=== PATIENT | female | born 1975 | race Caucasian/White ===

== ENCOUNTER → 2016-10-03 | Outpatient (CLI) | payer OTHER | LOC: WI 08:18 | PROVIDERS: ATTEND Nurse Practitioner Primary Care | DX: Z12.31 Encounter for screening mammogram for malignant neoplasm of breast (principal); R92.0 Mammographic microcalcification found on diagnostic imaging of breast | CPT/HCPCS: 77063; G0202; 77067 ==

== ENCOUNTER → 2016-10-16 | Outpatient (CLI) | payer OTHER | LOC: WI 07:50 | PROVIDERS: ATTEND Nurse Practitioner Primary Care | DX: R92.2 Inconclusive mammogram (principal) | CPT/HCPCS: G0204-52 ==

== ENCOUNTER → 2016-10-30 | Day surgery (SDC) | payer OTHER ==
[~2016-10-30] MED LIST: LIDOCAINE 1%/EPINEPHRINE INJ 20 ML VIAL ONE
== END ==
LOC: WI 08:14
PROVIDERS: ATTEND Nurse Practitioner Primary Care
PROC: 0HBU3ZX Excision of Left Breast, Percutaneous Approach, Diagnostic (ICD-10-PCS; principal; 2016-10-30)
DX: N60.32 Fibrosclerosis of left breast (principal); R92.0 Mammographic microcalcification found on diagnostic imaging of breast
CPT/HCPCS: 88305 ×2; 88342; 19081; 76642; J3490

== ENCOUNTER → 2017-01-02 | Day surgery (SDC) | payer OTHER ==
[~2017-01-02] MED LIST changes: -LIDOCAINE 1%/EPINEPHRINE INJ 20 ML VIAL ONE; +LIDOCAINE 2% INJ (20 MG/ML) 20 ML MDV ONE
--- NOTE | 2017-01-04 17:20 | WOMENS IMAGING REPORT ---
EXAM DESCRIPTION: U/S BREAST BX; LEFT DIG DX MAMMO NO CHG COMPLETED DATE/TIME: 01/02/2017 2:10 pm; 01/02/2017 1:52 pm REASON FOR STUDY: R92.0, CALCS; S/P US LEFT BRST BX FOR CLIP PLACEMENT R92.0 MAMMOGRAPHIC MICROCALC IFICATION FOUND ON DX IMAGING OF N60.02 SOLITARY CYST OF LEFT BREAST COMPARISON: Multiple left breast mammograms and ultrasound dating back to 10/03/2016 Stereotactic left breast biopsy 10/30/2016 TECHNIQUE: The procedure was discussed with the patient and the patient agreed to proceed. The patient was scanned and the area of interest in the deep 1 o'clock position 10 to 11 cm from the nipple of the last breast was localized. This correlates with the area of concern on prior imaging s tudies. This area was targeted for ultrasound-guided core biopsy. After sterile skin prep and 3.5 mL cc local lidocaine 1% for skin and deep tissue anesthesia, a 14 ga uge coaxial core biopsy needle was used to obtain several cores of tissue from the lesion. The lesio n was completely gone after core biopsy suggesting rupture of a cyst. Under ultrasound guidance, a r ibbon clip was placed in the areas sampled. There were no immediate post-procedure complications. MAMMOGRAM: Post-procedure two view mammogram was acquired in the digital mammogram suite. The clip wa s in the expected location. No significant hematoma. Pathology yields a diagnosis of benign mammary tissue with interlobular fibrosis and fibrocystic rojas ges. No atypia or malignancy identified. Pathology is concordant. LIMITATIONS: None. FINDINGS: Ultrasound guided breast biopsy as described above. POST PROCEDURE MAMMOGRAMS FOR MARKER PLACEMENT: Yes IMPRESSION: ULTRASOUND-GUIDED CORE BIOPSY OF THE LEFT BREAST YIELDS A BENIGN DIAGNOSIS BI-RADS 2 Benign findings. COMMENT: COMMUNICATION: PATIENT WAS NOTIFIED OF THE RESULTS, 1030 HOURS, 01/04/2017 Patient medication list reviewed: Yes- Quality ID# [id number]:Eligible professional attests to documenting i n the medical record they obtained, updated, or reviewed the patient's current medications. TECHNICAL DOCUMENTATION: JOB ID: [id number] [employer]- All Rights Reserved
== END ==
LOC: WI 13:00
PROVIDERS: ATTEND Surgery
PROC: 0HBU3ZX Excision of Left Breast, Percutaneous Approach, Diagnostic (ICD-10-PCS; principal; 2017-01-02)
DX: N60.32 Fibrosclerosis of left breast (principal)
CPT/HCPCS: 88305 ×2; 19083; J3490

== ENCOUNTER → 2017-11-15 | Outpatient (CLI) | payer OTHER ==
--- NOTE | 2017-11-15 10:01 | WOMENS IMAGING REPORT ---
EXAM DESCRIPTION: BILAT SCREENING MAMMO W/CAD COMPLETED DATE/TIME: 11/15/2017 9:15 am REASON FOR STUDY: ROUTINE BILATERAL SCREENING;Z12.31 Z12.31 ENCNTR SCREEN MAMMOGRAM FOR MALIGNANT N EOPLASM OF ZORAN COMPARISON: 2016 TECHNIQUE: Standard craniocaudal and mediolateral oblique views of each breast recorded using [employer] l acquisition. LIMITATIONS: None. FINDINGS: No masses, calcifications or architectural distortion. No areas of suspicion. Read with the assistance of CAD. .[facility] - R2 Cenova Version 1.3 .[facility] - R2 Cenova Version 1.3 .[facility] - R2 Cenova Version 2.4 .[facility] [place] - R2 Cenova Version 2.4 .[facility] - R2 [employer] Block Setter Version 9.2 IMPRESSION: NORMAL MAMMOGRAM. BIRADS 1. BREAST DENSITY: b. There are scattered areas of fibroglandular density. BIRAD: 1 NEGATIVE RECOMMENDATION: ROUTINE SCREENING COMMENT: The patient has been notified of the results by letter per SA requirements. Additional no tification policies are in place for contacting patient with suspicious or incomplete findings. Quality ID #[id number]: The [employer] recommends an annual screening mammogram for women aged 40 years or over. This facility utilizes a reminder system to ensure that all patients receive reminder letters, and/or direct phone calls for appointments. This includes reminders for routine scr eening mammograms, diagnostic mammograms, or other Breast Imaging Interventions when appropriate. Th is patient will be placed in the appropriate reminder system. The [employer] (ACR) has developed recommendations for screening MRI of the breast s in certain patient populations, to be used in conjunction with mammography. Breast MRI surveillanc e may be appropriate for women with more than 20% lifetime risk of developing breast cancer as deter mined by genetic testing, significant family history of the disease, or history of mantle radiation f or Hodgkins Disease. ACR Practice Guidelines 2008. TECHNICAL DOCUMENTATION: FINDING NUMBER: (1) ASSESSMENT: (1) JOB ID: [id number] [employer]- All Rights Reserved Reading location - IP/workstation name: [email or web address]
== END ==
LOC: WI 07:09
PROVIDERS: ATTEND Nurse Practitioner Primary Care
DX: Z12.31 Encounter for screening mammogram for malignant neoplasm of breast (principal)
CPT/HCPCS: 77067

== ENCOUNTER → 2018-12-02 | Outpatient (CLI) | payer OTHER ==
--- NOTE | 2018-12-02 17:05 | WOMENS IMAGING REPORT ---
EXAM DESCRIPTION: BILAT SCREENING MAMMO W/CAD COMPLETED DATE/TIME: 12/02/2018 9:10 am REASON FOR STUDY: Z12.31 ROUTINE BILATERAL SCREENING Z12.31 ENCNTR SCREEN MAMMOGRAM FOR MALIGNANT N EOPLASM OF ZORAN COMPARISON: 2016, 2017 EXAM PARAMETERS: Standard craniocaudal and mediolateral oblique views of each breast recorded using digital acquisition. Read with the assistance of CAD. .[facility] - [employer] Mold Assembler Version 9.2 LIMITATIONS: None. FINDINGS: No suspicious masses, suspicious calcifications or architectural distortion. No areas of s uspicion. IMPRESSION: ASSESSMENT: Negative MAMMOGRAM. BIRADS 1 BREAST DENSITY: b. There are scattered areas of fibroglandular density. BIRAD: 1 NEGATIVE RECOMMENDATION: ROUTINE SCREENING COMMENT: The patient has been notified of the results by letter per SA requirements. Additional no tification policies are in place for contacting patient with suspicious or incomplete findings. Quality ID #[id number]: The [employer] recommends an annual screening mammogram for women aged 40 years or over. This facility utilizes a reminder system to ensure that all patients receive reminder letters, and/or direct phone calls for appointments. This includes reminders for routine scr eening mammograms, diagnostic mammograms, or other Breast Imaging Interventions when appropriate. Th is patient will be placed in the appropriate reminder system. TECHNICAL DOCUMENTATION: FINDING NUMBER: (1) ASSESSMENT: (1) JOB ID: [id number] [employer]- All Rights Reserved Reading location - IP/workstation name: [email or web address]
== END ==
LOC: WI 08:50
PROVIDERS: ATTEND Nurse Practitioner Primary Care
DX: Z12.31 Encounter for screening mammogram for malignant neoplasm of breast (principal)
CPT/HCPCS: 77067

== ENCOUNTER → 2019-06-16 | Outpatient (CLI) | payer OTHER ==
--- NOTE | 2019-06-16 09:59 | WOMENS IMAGING REPORT ---
EXAM DESCRIPTION: 3D DX MAMMO BILAT COMPLETED DATE/TIME: 06/16/2019 9:07 am REASON FOR STUDY: LT BREAST PAIN N64.4 COMPARISON: 2017. 12/02/2018. EXAM PARAMETERS: Standard craniocaudal and mediolateral oblique views of each breast recorded using digital acquisition. Left true lateral view. Left breast ultrasound. Read with the assistance of CAD: .[employer] Program Management Professional Version 9.2 LIMITATIONS: None. FINDINGS: RIGHT BREAST MASSES: No suspicious masses. CALCIFICATIONS: No new or suspicious calcifications. ARCHITECTURAL DISTORTION: None. ASYMMETRY: None noted. OTHER: No other significant findings. LEFT BREAST MASSES: No suspicious masses. CALCIFICATIONS: No new or suspicious calcifications. ARCHITECTURAL DISTORTION: None. ASYMMETRY: None noted. OTHER: No other significant finding. Left breast ultrasound: At approximately 3 o'clock, ovoid wider than tall circumscribed hypoechoic a jess minimal septation suggestive of a tiny cyst. 2nd similar lesion close to 9 o'clock in the deeper tissues. IMPRESSION: 1. Stable mammograms without suspicious features. 2. Incidental minimally complicated cysts in the left breast. BREAST DENSITY: c. The breasts are heterogeneously dense, which may obscure small masses. BIRAD: ASSESSMENT: 2 Benign findings. RECOMMENDATION: RECOMMENDED FOLLOW UP: Clinical followup of breast pain. Continued yearly mammograp hy. SPECIFIC INTERVENTION/IMAGING/CONSULTATION RECOMMENDED:No additional intervention/ imaging/consultati on needed at this time. COMMUNICATION:The negative/benign results were communicated to the patient. COMMENT: The patient has been notified of the results by letter per SA requirements. Additional no tification policies are in place for contacting patient with suspicious or incomplete findings. Quality ID #225: The [employer] recommends an annual screening mammogram for women aged 40 years or over. This facility utilizes a reminder system to ensure that all patients receive reminder letters, and/or direct phone calls for appointments. This includes reminders for routine scr eening mammograms, diagnostic mammograms, or other Breast Imaging Interventions when appropriate. Th is patient will be placed in the appropriate reminder system. TECHNICAL DOCUMENTATION: FINDING NUMBER: (1) ASSESSMENT: (1) JOB ID: [id number] [employer]- All Rights Reserved Reading location - IP/workstation name: [email or web address]
--- NOTE | 2019-06-16 10:32 | WOMENS IMAGING REPORT ---
EXAM DESCRIPTION: U/S BREAST UNILATERAL, COMPL COMPLETED DATE/TIME: 06/16/2019 9:58 am REASON FOR STUDY: N64.4 LEFT BREAST COMPARISON: None. LIMITATIONS: None. FINDINGS: Please see correlative diagnostic mammography report from the same date for full findings. IMPRESSION: Please see correlative diagnostic mammography report from the same date for full finding s. TECHNICAL DOCUMENTATION: JOB ID: [id number] [employer]- All Rights Reserved Reading location - IP/workstation name: [email or web address]
== END ==
LOC: WI 08:48
PROVIDERS: ATTEND Nurse Practitioner Primary Care
DX: N60.02 Solitary cyst of left breast (principal); N64.4 Mastodynia
CPT/HCPCS: 76641; 77066; G0279; 77062

== ENCOUNTER → 2020-06-27 | Outpatient (CLI) | payer OTHER ==
--- NOTE | 2020-06-27 14:05 | WOMENS IMAGING REPORT ---
EXAM DESCRIPTION: 3D SCREENING MAMMO BILAT IMAGES COMPLETED DATE/TIME: 06/27/2020 12:09 pm REASON FOR STUDY: Z12.31 ENCNTR SCREEN MAMMOGRAM FOR MALIGNANT NEOPLASM OF BREAST Z12.31 ENCNTR SCR EEN MAMMOGRAM FOR MALIGNANT NEOPLASM OF ZORAN COMPARISON: 2018- EXAM PARAMETERS: Views: Standard craniocaudal and mediolateral oblique views of each breast recorded using digital acquisition and breast tomosynthesis. Read with the assistance of CAD. .[facility] - [employer] Liquor Clerk Version 9.2 LIMITATIONS: None. FINDINGS: No suspicious masses, suspicious calcifications or architectural distortion. No areas of c oncern. IMPRESSION: NEGATIVE MAMMOGRAM. BIRADS 1. BREAST DENSITY: c. The breasts are heterogeneously dense, which may obscure small masses. BIRAD: ASSESSMENT: 1 NEGATIVE RECOMMENDATION: ROUTINE SCREENING COMMENT: The patient has been notified of the results by letter per MQSA requirements. Additional no tification policies are in place for contacting patient with suspicious or incomplete findings. Quality ID #[id number]: The [employer] recommends an annual screening mammogram for women aged 40 years or over. This facility utilizes a reminder system to ensure that all patients receive reminder letters, and/or direct phone calls for appointments. This includes reminders for routine scr eening mammograms, diagnostic mammograms, or other Breast Imaging Interventions when appropriate. Th is patient will be placed in the appropriate reminder system. TECHNICAL DOCUMENTATION: FINDING NUMBER: (1) ASSESSMENT: (1) JOB ID: [id number] [email or web address]- All Rights Reserved Reading location - IP/workstation name: [email or web address]
== END ==
LOC: WI 11:42
PROVIDERS: ATTEND Nurse Practitioner Primary Care
DX: Z12.31 Encounter for screening mammogram for malignant neoplasm of breast (principal)
CPT/HCPCS: 77063; 77067